=== PATIENT | male | born 1995 | race Asian ===

== ENCOUNTER 2018-12-15 13:50 | Emergency (ER) | payer OTHER ==
[2018-12-15] MEDS ORDERED: NS 0.9% 1000 ML** 1,000 ML IV ONE (14:02)
[2018-12-15 16:10] VITALS: BP 139/76
--- NOTE | 2018-12-15 16:52 | ED ---
Allergic Reaction/Systemic - HPI Summary HPI Summary: Patient is a 23-year-old male presenting to the ED with allergic reaction. He states he opened up a cabinet and immediately following had itching to the face , bilateral arms and groin with hives to the groin and arms and swelling to both eyelids. He denies any shortness of breath or difficulty with breathing or swallowing. Voice changes per family at bedside. He was seen at urgent care who called an ambulance and sent him here. He received 0.3 epinephrine and Benadryl in urgent care and he took prednisone and Zyrtec prior to arrival at home. He states this occurred approximately 3 hours ago, has not been worsening, however has remained stable. He denies any known allergies. He states this is never happened to him before. He states he feels otherwise well. - History of Current Complaint Chief Complaint: EDAllergicReaction Time Seen by Provider: 12/15/18 13:53 Hx Obtained From: Patient Onset/Duration: Sudden Onset Timing: Constant Severity Initially: Moderate Severity Currently: Moderate Pain Intensity: 0 Pain Scale Used: 0-10 Numeric Location: Diffuse Character: Swelling, Pruritus, Hives Alleviating Factor(s): Antihistamines, Epinephrine Associated Signs And Symptoms: Positive: Hoarseness. Negative: Abdominal Pain, Chest Pain, Cough Wheezing, Difficulty Breathing, Vomiting - Related Hx Possible Reaction To: Environmental Exposure - Allergies/Home Medications Allergies/Adverse Reactions: Allergies Allergy/AdvReac Type Severity Reaction Status Date / Time No Known Allergies Allergy Verified 12/13/16 15:19 Home Medications: Home Medications NK [No Home Medications Reported] 12/15/18 [History Confirmed 12/15/18] PMH/Surg Hx/FS Hx/Imm Hx Previously Healthy: Yes Endocrine/Hematology History: Denies: Hx Diabetes Cardiovascular History: Denies: Hx Hypertension, Hx Pacemaker/ICD History: Denies: Hx Renal Disease Musculoskeletal History: Denies: Hx Rheumatoid Arthritis, Hx Osteoporosis Sensory History: Denies: Hx Hearing Aid Psychiatric History: Denies: Hx Eating Disorder, Hx Panic Disorder, Hx Suicide Attempt, Hx of Violent Episodes Against Others - Surgical History Surgery Procedure, Year, and Place: UMBILICAL HERNIA AGE 4 - Immunization History Hx Pertussis Vaccination: No Immunizations Up to Date: Yes Infectious Disease History: No Infectious Disease History: Denies: Traveled Outside the [place] in Last 30 Days - Family History Known Family History: Positive: None, Other Family History: Per Pt, sister has hx of bipolar d/o. - Social History Occupation: Employed Full-time Lives: With Family Alcohol Use: Occasionally Hx Substance Use: Yes Substance Use Type: Reports: Marijuana Hx Tobacco Use: No Smoking Status (MU): Never Smoked Tobacco Review of Systems Constitutional: Negative Negative: Fever, Chills, Fatigue, Skin Diaphoresis Negative: Palpitations, Chest Pain Negative: Shortness Of Breath, Cough Negative: Abdominal Pain, Vomiting, Diarrhea, Nausea Genitourinary: Negative Positive: no symptoms reported, see HPI Negative: Arthralgia, Myalgia Positive: Other - eyelid swelling Neurological: Negative All Other Systems Reviewed And Are Negative: Yes Physical Exam Triage Information Reviewed: Yes Vital Signs On Initial Exam: Initial Vitals Temp Pulse Resp BP Pulse Ox 99.2 F 87 16 154/99 97 12/15/18 13:54 12/15/18 13:54 12/15/18 13:54 12/15/18 13:54 12/15/18 13:54 Vital Signs Reviewed: Yes Appearance: Positive: Well-Appearing, Well-Nourished Skin: Positive: Warm, Skin Color Reflects Adequate Perfusion Head/Face: Positive: Normal Head/Face Inspection Eyes: Positive: EOMI, Conjunctiva Clear, Other: - eyelid swelling ENT: Positive: Pharynx normal, Hoarse voice. Negative: Pharyngeal erythema, Tonsillar swelling, Tonsillar exudate, Dental tenderness, Sinus tenderness Neck: Positive: Supple, No Lymphadenopathy Respiratory/Lung Sounds: Positive: Clear to Auscultation, Breath Sounds Present Cardiovascular: Positive: RRR, Pulses are Symmetrical in both Upper and Lower Extremities Musculoskeletal: Positive: Strength/ROM Intact Neurological: Positive: Sensory/Motor Intact, Alert, Oriented to Person Place, Time, Speech Normal Psychiatric: Positive: Normal, Affect/Mood Appropriate AVPU Assessment: Alert Diagnostics - Vital Signs Vital Signs Temp Pulse Resp BP Pulse Ox 12/15/18 16:10 99.5 F 71 17 139/76 97 12/15/18 16:06 69 18 139/76 96 12/15/18 16:00 70 16 96 12/15/18 15:00 66 19 99 12/15/18 14:00 88 19 97 12/15/18 13:54 99.2 F 87 16 154/99 97 - Laboratory Lab Statement: Any lab studies that have been ordered have been reviewed, and results considered in the medical decision making process. Allergic Reaction Course/Dx - Course Course Of Treatment: On arrival into the ED, the patient is having an apparent allergic reaction. He is endorsing swelling to the bilateral upper eyelids, voice changes, however without dysphagia or odynophagia. Denies chest pain or shortness of breath. Is endorsing hives to the bilateral upper extremities as well as to the groin which is now resolved prior to arrival. He was given epinephrine and Benadryl at [facility] urgent care prior to arrival. He states he is feeling much improved and would like to go home. While he is in the ED he is given 1 L fluids and he is observed for approximately 2 hours. At this point he states he continues to feel improved, and there is no hives noted, however this left sided upper lid swelling continues. Airway patent. Lungs CTA. RRR. This patient is stable, he will be discharged home with allergic reaction. - Diagnoses Differential Diagnosis/HQI/PQRI: Positive: Anaphylaxis, Bronchospasm, Local Allergic Reaction, Urticaria Provider Diagnoses: Allergic reaction Discharge - Sign-Out/Discharge Documenting (check all that apply): Patient Departure Patient Received Moderate/Deep Sedation with Procedure: No - Discharge Plan Condition: Stable Disposition: HOME Referrals: No Primary Care Phys,NOPCP [Primary Care Provider] - Additional Instructions: Take 40mg prednisone tomorrow and again the next day Benadryl before bed tonight If symptoms worsen - return to the ED - Billing Disposition and Condition Condition: STABLE Disposition: Home
== END 2018-12-15 16:10 | disposition home or self-care (01) ==
LOC: ED 13:50
DX: T78.40XA Allergy, unspecified, initial encounter (principal); R49.0 Dysphonia; H02.844 Edema of left upper eyelid; X58.XXXA Exposure to other specified factors, initial encounter
CPT/HCPCS: 96360; 99282